=== PATIENT | male | born 1970 | race American Indian/Alaskan Native ===

== ENCOUNTER 2017-08-28 08:32 | Emergency (ER) | payer OTHER ==
[2017-08-28 08:47] VITALS: BP 124/77
--- NOTE | 2017-08-28 08:56 | Emergency Department Report ---
ED Dysuria HPI - HPI Chief Complaint: Urogenital-Male Stated Complaint: STD EXPOSURE Time Seen by Provider: 08/28/17 08:55 Duration: 3 Days Severity: None Symptoms: Dysuria: No, Frequency: No, Suprapubic Pain: No, Flank Pain: No, Fever : No, Hematuria: No, Abdominal Pain: No, Previous UTI's: No ED Review of Systems ROS: Stated complaint: STD EXPOSURE Other details as noted in HPI Comment: All other systems reviewed and negative Eyes: other (pt woke up w red eye and he was concerned he std "lucas" from touching a womans vagina. no oral or vaginal sex. he only touched her. he states he went on [employer] and things he has lucas.) ED Past Medical Hx - Past Medical History Previous Medical History?: Yes Additional medical history: cholesterol - Surgical History Past Surgical History?: No - Social History Smoking Status: Current Every Day Smoker Substance Use Type: Alcohol Dysuria Exam - Exam General: Vital signs noted. No distress. Alert and acting appropriately. no fever no abd pain no test pain no urethral dc anxious about std with "this woman" again denies sex no eye redness no sinus tenderness throat wnl vss non toxic non ill appearing Exam: Yes Moist Mucous Membranes, No CVA Tenderness, No Abdominal Tenderness, No Rigidity or Guarding ED Course Vital Signs 08/28/17 08:43 Temperature 98 F Pulse Rate 94 H Respiratory 16 Rate Blood Pressure 124/77 O2 Sat by Pulse 100 Oximetry - Reevaluation(s) Reevaluation #1: 08/28/17 to er today p touching a womans vagina several days later he woke (today) with red eye- not red now. and he is worried he has gonorrhea pt educated on std etc. dc home w dc poc ED Medical Decision Making - Medical Decision Making see note - Differential Diagnosis std Critical care attestation.: If time is entered above; I have spent that time in minutes in the direct care of this critically ill patient, excluding procedure time. ED Disposition Clinical Impression: Anxiety Disposition: DC-01 TO HOME OR SELFCARE Is pt being admited?: No Does the pt Need Aspirin: No Condition: Stable Additional Instructions: see pcp prn safe sex Time of Disposition: 08:56
== END 2017-08-28 08:55 | disposition home or self-care (01) ==
LOC: ED 08:32
DX: R30.0 Dysuria (principal); F41.9 Anxiety disorder, unspecified; F17.200 Nicotine dependence, unspecified, uncomplicated
CPT/HCPCS: 99282

== ENCOUNTER 2017-09-18 04:52 | Emergency (ER) | payer SELFPAY | END 2017-09-18 04:53 | disposition left against medical advice (07) | LOC: ED 04:52 | DX: R51 Headache (principal); Z53.21 Procedure and treatment not carried out due to patient leaving prior to being seen by health care provider ==

== ENCOUNTER 2019-01-10 22:30 | Emergency (ER) | payer OTHER ==
[2019-01-10 22:46] VITALS: BP 116/69
--- NOTE | 2019-01-11 03:58 | Emergency Department Report ---
ED Rash HPI - [facility] Chief Complaint: Skin Rash Stated Complaint: ITCHY BODY RASH Time Seen by Provider: 01/11/19 03:17 ED Review of Systems ROS: Stated complaint: ITCHY BODY RASH Other details as noted in HPI ED Past Medical Hx - Past Medical History Previous Medical History?: Yes Additional medical history: cholesterol - Surgical History Past Surgical History?: No - Social History Smoking Status: Current Every Day Smoker Substance Use Type: Marijuana - Medications Home Medications: Home Medications Medication Instructions Recorded Confirmed Last Taken Type Clotrimazole/Betamethasone Dip 45 gm TP BID #90 cream..g. 01/11/19 Unknown Rx [Lotrisone Cream] hydrOXYzine HCL [Atarax] 25 mg PO Q6HR PRN #20 tablet 01/11/19 Unknown Rx Rash Exam - Exam General: Vital signs noted. No distress. Alert and acting appropriately. ED Course Vital Signs 01/10/19 22:42 Temperature 98.1 F Pulse Rate 76 Respiratory 20 Rate Blood Pressure 116/69 O2 Sat by Pulse 99 Oximetry Critical care attestation.: If time is entered above; I have spent that time in minutes in the direct care of this critically ill patient, excluding procedure time. ED Disposition Clinical Impression: Rash Disposition: DC-01 TO HOME OR SELFCARE Is pt being admited?: No Does the pt Need Aspirin: No Condition: Stable Instructions: Acute Rash (ED) Prescriptions: hydrOXYzine HCL [Atarax] 25 mg PO Q6HR PRN #20 tablet PRN Reason: Itching Clotrimazole/Betamethasone Dip [Lotrisone Cream] 45 gm TP BID #90 cream..g. Referrals: MERY ISRAEL MD [Primary Care Provider] - 3-5 Days
== END 2019-01-11 04:00 | disposition home or self-care (01) ==
LOC: ED 22:30
DX: R21 Rash and other nonspecific skin eruption (principal); L29.9 Pruritus, unspecified
CPT/HCPCS: 99282